=== PATIENT | female | born 1980 | race Caucasian/White ===

== ENCOUNTER 2017-06-08 09:04 | Outpatient (CLI) | payer OTHER | END 2017-06-08 09:21 | disposition home or self-care (01) | LOC: MAMO-SONO 09:04 | DX: Z12.31 Encounter for screening mammogram for malignant neoplasm of breast (principal) ==

== ENCOUNTER 2017-08-31 11:41 | Outpatient (CLI) | payer OTHER | END 2017-08-31 11:49 | disposition home or self-care (01) | LOC: SONOGRAMA 11:41 | DX: R10.2 Pelvic and perineal pain (principal); R19.00 Intra-abdominal and pelvic swelling, mass and lump, unspecified site ==

== ENCOUNTER 2017-11-15 08:29 | Outpatient (CLI) | payer OTHER | END 2017-11-15 09:00 | disposition home or self-care (01) | LOC: NUCLEAR 08:29 | DX: K31.84 Gastroparesis (principal) | CPT/HCPCS: 78264; A9541 ==

== ENCOUNTER 2019-09-14 11:31 | Outpatient (CLI) | payer OTHER | END 2019-09-14 11:34 | disposition home or self-care (01) | LOC: MAMO-SONO 11:31 | DX: R10.2 Pelvic and perineal pain (principal) ==

== ENCOUNTER 2019-10-06 13:11 | Outpatient (CLI) | payer OTHER | END 2019-10-06 13:14 | disposition home or self-care (01) | LOC: SONOGRAMA 13:11 | DX: N63.20 Unspecified lump in the left breast, unspecified quadrant (principal) ==

== ENCOUNTER 2020-05-31 10:23 | Outpatient (CLI) | payer OTHER | END 2020-05-31 10:32 | disposition home or self-care (01) | LOC: LAB 10:23 | PROVIDERS: ATTEND Specialist | DX: Z13.220 Encounter for screening for lipoid disorders (principal); Z13.1 Encounter for screening for diabetes mellitus ==

== ENCOUNTER 2020-05-31 12:04 | Outpatient (CLI) | payer OTHER | END 2020-05-31 12:21 | disposition home or self-care (01) | LOC: TOM 12:04 | PROVIDERS: ATTEND Specialist | DX: G93.89 Other specified disorders of brain (principal) ==

== ENCOUNTER 2021-02-14 10:57 | Outpatient (CLI) | payer OTHER | END 2021-02-14 11:17 | disposition home or self-care (01) | LOC: SONOGRAMA 10:57 | PROVIDERS: ATTEND General Practice | DX: M54.2 Cervicalgia (principal); M54.59 Other low back pain; M62.830 Muscle spasm of back; Z00.01 Encounter for general adult medical examination with abnormal findings; Z11.4 Encounter for screening for human immunodeficiency virus [HIV]; Z13.228 Encounter for screening for other metabolic disorders; Z13.220 Encounter for screening for lipoid disorders; Z13.29 Encounter for screening for other suspected endocrine disorder; Z13.0 Encounter for screening for diseases of the blood and blood-forming organs and certain disorders involving the immune mechanism; Z13.1 Encounter for screening for diabetes mellitus; Z12.11 Encounter for screening for malignant neoplasm of colon; N60.09 Solitary cyst of unspecified breast; Z12.31 Encounter for screening mammogram for malignant neoplasm of breast ==

== ENCOUNTER → 2021-11-21 08:00 | Outpatient (CLI) | payer OTHER ==
[~2021-11-21] VITALS: Ht 162.6 cm; Wt 95.3 kg
== END | disposition home or self-care (01) ==
LOC: LAB 08:00 → ADM 09:30 → EDSTATUS 11-24 09:30 → CIR.AMB 11-24 09:30
PROVIDERS: ATTEND Obstetrics & Gynecology Obstetrics
DX: N93.9 Abnormal uterine and vaginal bleeding, unspecified (principal); Z20.828 Contact with and (suspected) exposure to other viral communicable diseases

== ENCOUNTER → 2021-12-09 | Outpatient (CLI) | payer OTHER | END | disposition home or self-care (01) | LOC: MAMO-SONO 11:21 | PROVIDERS: ATTEND Obstetrics & Gynecology Obstetrics | DX: Z12.31 Encounter for screening mammogram for malignant neoplasm of breast (principal); N64.0 Fissure and fistula of nipple ==

== ENCOUNTER 2023-12-15 09:09 | Emergency (ER) | payer OTHER ==
[~2023-12-15] VITALS: Ht 162.6 cm; Wt 86.2 kg
[2023-12-15 10:23] LABS: HEMATOCRIT 41.4 % (36.0-45.00); HEMOGLOBIN 14.1 g/dL (12.0-15.00); MEAN CELL VOLUME 90.4 fL (80.00-100.00); MEAN CORPUSCULAR HEMOGLOBIN 30.8 pg (27.00-32.0); MEAN CORPUSCULAR HGB CONC 34.1 g/dl (32.0-36.0); PLATELET COUNT 241 K/uL (150-450); RED BLOOD COUNT 4.58 M/uL (4.00-6.00); RED CELL DISTRIBUTION WIDTH 13.5 % (11.5-14.5)
== END 2023-12-15 11:22 | disposition home or self-care (01) ==
LOC: ER 09:11
PROVIDERS: General Practice
DX: O03.9 Complete or unspecified spontaneous abortion without complication (principal)